=== PATIENT | female | born 1960 | race Caucasian/White ===

== ENCOUNTER → 2024-04-14 | Outpatient (CLI) | payer OTHER | LOC: LAB 15:17 → LAB SHORT 15:17 | DX: N39.0 Urinary tract infection, site not specified (principal) | CPT/HCPCS: 87077; 87086; 87186 ==

== ENCOUNTER 2025-02-06 07:22 | Day surgery (SDC) | payer OTHER ==
[~2025-02-06] VITALS: Ht 154.9 cm; Wt 51.3 kg
[2025-02-06] VITALS (15 sets, daily range): BP systolic 116–151; BP diastolic 60–100
[2025-02-06] MEDS ORDERED: NS 500 ML IV ONE (07:23)
[2025-02-06] MEDS ORDERED: NS 1,000 ML IV ONE ×2 (07:23→08:01)
[2025-02-06] MEDS ORDERED: Heparin Sodium 1000 Units/ML 10ML MDV ONE ×2 (07:23→08:49)
[2025-02-06] MEDS ORDERED: Nitroglycerin 2 MG/20 ML BTL ONE (07:24)
[2025-02-06] MEDS ORDERED: Tessalon200 MG PO (07:35)
[2025-02-06] MEDS ORDERED: ATOR40TA PO (07:35)
[2025-02-06] MEDS ORDERED: ALBU90OI INH (07:35)
[2025-02-06] MEDS ORDERED: NS 250 ML IV ONE (07:35)
[2025-02-06] MEDS ORDERED: DIPH50 PO (07:36)
[2025-02-06] MEDS ORDERED: EPIPEN0.3 MG/0.3 IM (07:37)
[2025-02-06] MEDS ORDERED: GABA300 PO (07:37)
[2025-02-06] MEDS ORDERED: HYDCOR10 PO (07:38)
[2025-02-06] MEDS ORDERED: IPRAT-ALBUT 0.5-3 ML INH (07:39)
[2025-02-06] MEDS ORDERED: MULVITA PO (07:39)
[2025-02-06] MEDS ORDERED: LEVSOD75 PO (07:39)
[2025-02-06] MEDS ORDERED: OMEP20ER PO (07:40)
[2025-02-06] MEDS ORDERED: SYMBICORT 16010.2 GM INH (07:40)
[2025-02-06] MEDS ORDERED: TIOT18 INH (07:40)
[2025-02-06] MEDS ORDERED: TRAZ50 PO (07:41)
[2025-02-06] MEDS ORDERED: Midazolam HCl 1MG / ML 2ML Vial ONE ×2 (08:00→10:00)
[2025-02-06] MEDS ORDERED: FentaNYL Citrate 50 MCG/ML 2 ML Injection ONE (08:01)
[2025-02-06] MEDS ORDERED: Protamine Sulfate 50 MG Amp ONE (10:17)
--- NOTE | 2025-02-06 10:50 | NUR ---
ASSUMED CARE OF PT POST PROCEDURE. PT AWAKE AND CONVERSING APPROPRIATELY; DENIES PAIN POST PROCEDURE. MONITOR SR 60'S, B/P 151/100, SPO2 93% RA. L GROIN MINIMAL SWELLING/SOFT (UNCHANGED FROM POST PROCEDURE), TEGADERM DRSG INTACT; BLE: DP'S DOP, PT'S 1 +. PT TAKING SIPS OF FLUID WITHOUT ISSUE.
--- NOTE | 2025-02-06 11:34 | NUR ---
DR MONTENEGRO IN TO DISCUSS RESULTS OF PROCEDURE WITH PT, EVALUATED L GROIN SITE.
--- NOTE | 2025-02-06 11:59 | NUR ---
groin site soft and mildly tender per pt. no bleeding/hematoma noted. sand bag in place.
--- NOTE | 2025-02-06 12:50 | NUR ---
HOB ELEVATED TO 30 DEGREES, SITE UNCHANGED. PT SITTING UP EATING WITHOUT ISSUE.
--- NOTE | 2025-02-06 14:04 | NUR ---
PT RECEIVED DISCHARGE INSTRUCTIONS, MED LIST AND AFTER CARE INSTRUCTIONS; VERBALIZED GOOD UNDERSTANDING. REPORT TO TANO REEVES; ALL QUESITONS ANSWERED.
--- NOTE | 2025-02-06 14:44 | NUR ---
ASSUMED CARE FROM LOAN. PT SITTING UP EATING AND DRINKING. L GROIN SITE BRUISED BUT SOFT. NO BLEEDING. PT ASSISTED UP TO BR AND GET DRESSED. IV D/C CATHETER INTACT. PT SPOUSE HERE AND EDUCATED ON D/C INSTRUCTIONS. PT WHEELED OUT TO VEHICLE WITH D/C INSTRUCTIONS IN HAND.
== END 2025-02-06 14:45 | disposition home or self-care (01) ==
LOC: MHTC 07:22
DX: I70.223 Atherosclerosis of native arteries of extremities with rest pain, bilateral legs (principal); I70.208 Unspecified atherosclerosis of native arteries of extremities, other extremity; I70.92 Chronic total occlusion of artery of the extremities; E03.9 Hypothyroidism, unspecified; E27.1 Primary adrenocortical insufficiency; M81.0 Age-related osteoporosis without current pathological fracture; K21.9 Gastro-esophageal reflux disease without esophagitis; E78.5 Hyperlipidemia, unspecified; I25.10 Atherosclerotic heart disease of native coronary artery without angina pectoris; I10 Essential (primary) hypertension; Z87.891 Personal history of nicotine dependence; Z79.890 Hormone replacement therapy; Z79.899 Other long term (current) drug therapy; Z88.0 Allergy status to penicillin; Z88.2 Allergy status to sulfonamides; Z88.8 Allergy status to other drugs, medicaments and biological substances; Z91.030 Bee allergy status; Z91.041 Radiographic dye allergy status
CPT/HCPCS: 37224; 37252; 75625; 75716; 75774; 76937; 99152; 99153; C1725; C1753; C1769; C1887; C1894; J1644; J2250; J2720; J3010; J7030; J7050; Q9967